=== PATIENT | female | born 1960 | race Caucasian/White ===

== ENCOUNTER → 2016-11-10 | Outpatient (CLI) | payer BC ==
[~2016-11-10] MED LIST: NO MEDICATIONS
--- NOTE | ~2016-11-10 | MY29 ---
[facility] A Service of [facility] RADIOLOGY TEXT RESULTS PATIENT: ALEJANDRO REA LOCATION: [facility] : 62 UNIT #: [id number] AGE: [address]: Rayshawn Baugh MD SEX: F ORDER DR: [id number] [facility]. [place], [place] [address] [id number] O MR#: [id number] Acc #: [id number] NAME: ALEJANDRO REA. : 1960 SEX: F STUDY DATE/TIME: 11/10/2016 10:10 UNIT: [facility] ROOM: STUDY DESCRIPTION: [facility] SCREENING W/ CAD BILAT Attending Physician: Rayshawn Baugh M.D. Referring Physician: Rayshawn Baugh M.D. Ordering Physician: Rayshawn Baugh M.D. Primary Care Physician: Rayshawn Baugh M.D. MEDICAL IMAGING REPORT This report is preliminary unless electronic signature is present EXAM Bilateral digital screening mammogram with CAD. INDICATIONS Breast cancer screening. 56-year-old asymptomatic female who reports a mother with postmenopausal breast cancer. COMPARISON STUDIES October 12, 2015, October 09, 2014, July 24, 2013, July 08, 2013, August 28, 2012, March 25, 2012, April 08, 2011, April 05, 2011, June 25, 2009, November 07, 2007, May 26, 2006. FINDINGS There are scattered fibroglandular tissues. No suspicious findings are present. IMPRESSION No mammographic evidence of malignancy. Annual screening mammography and clinical breast exam are recommended. Patients over the age of 40 are entered into a reminder system with target due date for the next mammogram. A result letter will also be sent to the patient. BIRADS: 1 Negative. Dictated by... Tim Chilel M.D. THIS IS AN ELECTRONICALLY VERIFIED REPORT [facility] A Service [facility] RADIOLOGY TEXT RESULTS PATIENT: ALEJANDRO REA LOCATION: [facility] : 62 UNIT #: [id number] AGE: [address]: Rayshawn Baugh MD SEX: F ORDER DR: Tim Chilel M.D. at 11/13/2016 10:19 PM SAADIA/shan TD: 11/10/2016 18:00 JOB #: [id number] MEDICAL IMAGING REPORT Page 1 of 1 COPY
== END | disposition home or self-care (01) ==
LOC: CWCC 09:48
DX: Z12.31 Encounter for screening mammogram for malignant neoplasm of breast (principal); Z80.3 Family history of malignant neoplasm of breast
CPT/HCPCS: G0202